=== PATIENT | female | born 1990 | race Hispanic/Latino ===

== ENCOUNTER 2019-04-03 04:21 | Inpatient (IN) | payer OTHER ==
[2019-04-02 09:09] LABS: Absolute Lymphocytes (CBC) 1.7 K/uL (0.7-4.9); Basophils % 0.2 % (0-1.3); Hematocrit 33.8 % (36.0-45.0); Lymphocytes % 20.7 % (15.3-44.8); MPV 9.6 fL (7.6-11.3); RBC Red Blood Cell Count 3.67 M/uL (3.86-4.86); Urine Appearance CLEAR; Urine Bilirubin NEGATIVE (NEG); Urine Blood NEGATIVE (NEG); Urine Color YELLOW; Urine Glucose NEGATIVE (NEG); Urine Protein NEGATIVE (NEG); Urine Urobilinogen 0.2 mg/dL (0.2-1.0)
[2019-04-02 09:12] LABS: Urine Microscopic Reflex NO UMIC
[2019-04-02 09:36] LABS: Protime INR 0.89
[~2019-04-03 04:21] MED LIST: CEFAZOLIN/SWI 2gm 2 GM/20 ML SYR IV SCH
[2019-04-03] MEDS ORDERED: Ringers Lactate 1,000 ML IV PRN (04:34)
[2019-04-03] MEDS ORDERED: NA CIT/CITRIC AC 30 ML ORAL UDC PO ONE (04:39)
[2019-04-03 04:55] VITALS: BMI 31.2
[2019-04-03] MEDS ORDERED: Ringers Lactate 1,000 ML IV SCH (05:00)
[2019-04-03] MEDS ORDERED: METOCLOPRAMIDE 10 MG/2mL INJ IV SCH (05:00)
[2019-04-03] MEDS ORDERED: CEFAZOLIN 2 GM in NA CHLORIDE 0.9% 100 ML IVPB SCH (06:00)
[2019-04-03] MEDS ORDERED: METHYLERGONOVINE 0.2MG/ML AMP IM ONE (06:18)
[2019-04-03] MEDS ORDERED: CEFAZOLIN/SWI 2gm 2 GM/20 ML SYR ONE (06:44)
[2019-04-03] MEDS ORDERED: CARBOPROST TROME 250 MCG/ML IM ONE (06:58)
[2019-04-03] MEDS ORDERED: LIDOCAINE 2% MPF 5 ML VIAL ONE (07:04)
[2019-04-03] MEDS ORDERED: MORPHINE SULFATE/PF 1 MG/ML (10 ML AMP) ONE (07:04)
[2019-04-03] MEDS ORDERED: EPHEDRINE SULF 50 MG/ML VIAL ONE (07:04)
[2019-04-03] MEDS ORDERED: OXYTOCIN 10 UNIT/ML ML IV ONE (07:05)
[2019-04-03] MEDS ORDERED: BUPIVACAINE 0.75% (PF) 2 ML SP ONE (07:07)
[2019-04-03] MEDS ORDERED: NS 0.9% VIAL 10 ML ONE (07:07)
[2019-04-03] MEDS ORDERED: ONDANSETRON 4 MG/2 ML VIAL ONE (07:09)
--- NOTE | 2019-04-03 08:29 | PREOPHP ---
Date of Admission: 04/03/2019 History Of Present Illness: 29-year-old female, 3, para 1, previous , for a repeat . Infection; blood loss; anesthetic complications; injury to bladder, bowel, ureter; postop erative complications; clots in legs; and pneumonia discussed. Patient knows fully well this does no t constitute all the possible problems that could occur during or following the surgery. She had an ultrasound in [place] that indicated possibly a very small percentage of accreta; however, on foll [facility] ultrasound in [place] with Dr. Garcia, high-computer network support specialist, he thinks the possibility for an ac creta is very low and he thinks that we can deliver here. Patient has been counseled and has chosen to deliver here. Has been given the opportunity to delivery in [place] if she so chooses, but declin ed. Family History: Maternal grandfather with diabetes. Uncle with autism. Allergies: NO ALLERGIES. Social History: No smoking. Medications: No medications other than vitamins prior to admission. Physical Examination: HEENT: Clear. Pupils equal, round, and reactive to light and accommodation. Conjunctivae well perf used. No oral, lingual, or buccal lesions. Chest and Lungs: Clear. Heart: Without murmurs, thrills, heaves, or rubs. Breasts: Without masses on previous visits. Abdomen: Term size. We have a male . It is probably at least 8 pounds or more. Extremities: Appear clear without edema, cyanosis, or clubbing. Pelvic: Cervix is fingertip. We will proceed with repeat section Saturday morning. Patient knows that [facility] and that Dr. Ty will be taking over. AMY/SREE Voice ID: [id number]
[2019-04-03] MEDS ORDERED: KETOROLAC 30 MG/ML INJ IM PRN (08:30)
[2019-04-03] MEDS ORDERED: CEFAZOLIN/SWI 1gm 1 GM/10 ML SYR IV SCH (08:30)
[2019-04-03] MEDS ORDERED: IBUPROFEN 200 MG TAB PO PRN (08:30)
[2019-04-03] MEDS ORDERED: BISACODYL 10 MG RECTAL SUPP RECT PRN (08:30)
[2019-04-03] MEDS ORDERED: ONDANSETRON 4 MG (ODT) TAB PO PRN (08:30)
[2019-04-03] MEDS ORDERED: ONDANSETRON 4 MG/2 ML VIAL IV PRN (08:30)
[2019-04-03] MEDS ORDERED: DIPHENHYDRAMINE 25 MG TAB/CAP PO PRN (08:30)
[2019-04-03] MEDS ORDERED: ACETAMINOPHEN 500 MG TAB PO PRN ×2 (08:30)
[2019-04-03] MEDS ORDERED: PROMETHAZINE 25 MG/ML VIAL ONE (08:31)
[2019-04-03] MEDS ORDERED: FAMOTIDINE 20 MG/2 ML VIAL IV SCH (09:00)
[2019-04-03] MEDS ORDERED: D5LR 1,000 ML with OXYTOCIN 20 UNIT IV SCH ×2 (09:00)
[2019-04-03] MEDS ORDERED: OXYTOCIN/LR 20 UNIT/1,000 ML BAG IV SCH (09:00)
[2019-04-03] MEDS ORDERED: Ringers Lactate 1,000 ML IV ONE ×2 (14:54→15:00)
[2019-04-03] MEDS ORDERED: CEFAZOLIN/SWI 2gm 2 GM/20 ML SYR IV SCH (16:00)
[2019-04-03] MEDS: KETOROLAC 30 MG/ML INJ IV PRN (16:23)
[2019-04-04] MEDS: KETOROLAC 30 MG/ML INJ IV PRN (05:45)
--- NOTE | 2019-04-04 07:48 | P.PN ---
Date of Service: 04/04/19 S-No complaints O-Afeb, vs stable, po hct 31, bandage dry, abdomen not distended A-Satisfactory P-D/C [place], IV, regular diet, ambulate.
[2019-04-04] MEDS ORDERED: MAGNESIUM HYDROXIDE 8% 30 ML PO PRN (08:30)
[2019-04-04] MEDS: Oxycodone HCl/Acetaminophen 1 TAB TAB PO PRN (14:45)
[2019-04-05] MEDS: Oxycodone HCl/Acetaminophen 1 TAB TAB PO PRN ×2 (00:21→06:00)
[2019-04-05 07:39] VITALS: BP 110/61; TEMP 98.4
--- NOTE | 2019-04-06 08:57 | OP ---
Surgeon: Daniel Richards MD 29-year-old female, 3, para 1, AB 1 at 39 weeks for repeat section. Infection, bloo d loss, anesthetic complications, injury to bladder, bowel, ureter, postoperative complications, clot s in legs, and pneumonia discussed. Patient knows fully well, this does not constitute all the possi ble problems that could occur during or following the surgery. She on 1 ultrasound was thought to po ssibly have a small amount of accreta. Consultation with high risk. [facility] gomez d no signs of accreta and at time of surgery no accreta was seen. After adequate spinal block anesth esia patient prepped and draped in the usual sterile manner, placed in dorsal supine position. Timeo ut was performed. Pfannenstiel incision was created over the previous incision site. The incision w as carried to the fascia. The fascia was incised and incision carried transversely bilaterally. Ant erior and posterior fascial planes were developed with both blunt and sharp dissection. The underlyi ng rectus muscle was . Peritoneum entered and low transverse bladder flap developed. At th is point, 7 pounds, 6 ounce male was delivered. Nuchal cord x1 loosely, Apgars 9 and 9. Cord blood specimen was obtained. Placenta was removed manually. Uterus cleared of clot and blood and e xteriorized. Cervical os dilated. As stated no signs of accreta. Estimated blood loss 800 cc or po ssibly less. Uterus closed with a running locked stitch of 1 chromic, followed by several figure-of- eight stitches, and running stitches along the right side of the incision for complete hemostasis. G utters cleared of clot and blood. Uterus was replaced in the peritoneal cavity. Inspection of sutur e line showed no further bleeding. The muscles were closed with 0 Vicryl 3 interrupted sutures. Fas ad was closed with 1 Vicryl running from either angle to the midline. Subcutaneous tissue was close d with 2-0 plain. Absorbable rox placed and then metal rox. Patient had been given 2 g of A ncef prior to the procedure. Tolerated all procedures well. Transferred back to her room in good co ndition. Final Diagnoses: Term intrauterine . Repeat section. Spinal block anesthesia. AMY/SREE Voice ID: [id number] Report ID: [id number]
== END 2019-04-05 10:05 | disposition home or self-care (01) | DRG 788 ==
LOC: 2ND-WC 04:21
PROVIDERS: ADMIT Specialist; ATTEND Specialist
PROC: 10D00Z1 Extraction of Products of Conception, Low, Open Approach (ICD-10-PCS; principal; 2019-04-03 07:30)
DX: O34.211 Maternal care for low transverse scar from previous cesarean delivery (principal); O69.81X0 Labor and delivery complicated by cord around neck, without compression, not applicable or unspecified; Z3A.39 39 weeks gestation of pregnancy; Z37.0 Single live birth
CPT/HCPCS: 36415; 81003; 85014; 85025; 85610; 85730; 86850; 86900; 86901; 88307; J0690; J2210; J2405; J2550; J2590; J2765; J7120

== ENCOUNTER 2020-12-01 05:07 | Inpatient (IN) | payer BC ==
[2020-11-30 15:42] LABS: Absolute Lymphocytes (CBC) 1.9 K/uL (0.7-4.9); Basophils % 0.4 % (0-1.3); Hematocrit 33.9 % (36.0-45.0); Lymphocytes % 21.8 % (15.3-44.8); MPV 9.9 fL (7.6-11.3); RBC Red Blood Cell Count 3.78 M/uL (3.86-4.86)
[2020-11-30 15:48] LABS: Protime INR 0.9
[2020-11-30 16:00] LABS: Urine Appearance CLEAR (Clear); Urine Bilirubin NEGATIVE (Negative); Urine Blood NEGATIVE (Negative); Urine Color YELLOW (Yellow); Urine Glucose NEGATIVE (Negative); Urine Microscopic Reflex NO UMIC; Urine Protein NEGATIVE (Negative); Urine Specific Gravity <=1.005 (1.005-1.030); Urine Urobilinogen 0.2 mg/dL (0.2-1.0)
[2020-11-30 23:13] LABS: RPR (Rapid Plasma Reagin) NON-REACT (NON-REACT)
[~2020-12-01 05:07] MED LIST changes: +CEFAZOLIN 2 GM in NA CHLORIDE 0.9% 100 ML IVPB SCH; -CEFAZOLIN/SWI 2gm 2 GM/20 ML SYR IV SCH; +CEFAZOLIN/SWI 2gm 2 GM/20 ML SYR IVP SCH; +Ringers Lactate 1,000 ML IV PRN; +Ringers Lactate 1,000 ML IV SCH
--- OUTSIDE RECORDS SUMMARY | 2020-12-01 05:12 | XMS REPORT | Continuity of Care Document ---
:1990 Author Organization [facility] t Address [address] [place] [address] [address] [place] [address] Care Team Providers Name Role Phone Radiology Attending Clinician Unavailable Doctor Unassigned, Name Attending Clinician Unavailable Problems This patient has no known problems. Allergies, Adverse Reactions, Alerts This patient has no known allergies or adverse reactions. Medications This patient has no known medications. Procedures This patient has no known procedures. Encounters Start End Encounter Admission Attending Care Care Encounter Source Date/Time Date/Time Type Type Clinicians Facility Department ID 2020-06-24 2020-06-24 [facility] Radiology [facility] [id number] 14:52:10 23:59:00 Encounter [place] [id number] [place] [id number] [place] [id number] 2020-06-24 2020-06-24 Orders Doctor SAQIB [id number] 00:00:00 00:00:00 Only Unassigned, [place] [id number] [place] [facility] [id number] Results This patient has no known results.
[2020-12-01] MEDS ORDERED: METOCLOPRAMIDE 10 MG/2mL INJ IV ONE (05:30)
[2020-12-01] MEDS ORDERED: FAMOTIDINE 20 MG/2 ML VIAL IV ONE (05:30)
[2020-12-01] MEDS ORDERED: NA CIT/CITRIC AC 30 ML ORAL UDC PO ONE (05:30)
[2020-12-01 06:28] VITALS: BMI 35.5
[2020-12-01 06:42] VITALS: O2SAT 100
[2020-12-01] MEDS ORDERED: EPHEDRINE SULF 50 MG/ML VIAL ONE (07:01)
[2020-12-01] MEDS ORDERED: Phenylephrine HCl 10 MG/ML 1 ML VIAL ONE (07:01)
[2020-12-01] MEDS ORDERED: NS 0.9% VIAL 0 ML ONE (07:01)
[2020-12-01] MEDS ORDERED: FENTANYL CITR 250 MCG/5 ML ONE (07:01)
[2020-12-01] MEDS ORDERED: LIDOCAINE 1% MPF 5 ML VIAL ONE (07:01)
[2020-12-01] MEDS ORDERED: OXYTOCIN 10 UNIT/ML ML IV ONE (07:01)
[2020-12-01] MEDS ORDERED: MORPHINE SULFATE/PF 1 MG/ML (10 ML AMP) ONE (07:01)
[2020-12-01] MEDS ORDERED: BUPIVACAINE 0.75% (PF) 2 ML SP ONE (07:02)
[2020-12-01] MEDS ORDERED: ONDANSETRON 4 MG/2 ML VIAL ONE (07:02)
[2020-12-01] MEDS ORDERED: CARBOPROST TROME 250 MCG/ML IM ONE (07:17)
[2020-12-01] MEDS ORDERED: METHYLERGONOVINE 0.2MG/ML AMP IM ONE (07:17)
[2020-12-01] MEDS ORDERED: CEFAZOLIN/SWI 2gm 2 GM/20 ML SYR ONE ×2 (07:27→15:49)
--- NOTE | 2020-12-01 07:54 | PREOPHP ---
Date of Admission: 12/01/2020 History Of Present Illness: This is a 30-year-old, 4, para 2, for repeat section. Infection; blood loss; anesthetic complications; injury to bladder, bowel, ureter; postoperative comp lications; clots in legs; pneumonia discussed. The patient knows fully well this does not constitute all the possible problems that could occur during or following surgery. Family History: Paternal grandfather with diabetes. She has an uncle, who is autistic. Past Surgical History: She has had 2 previous C-sections. Allergies: SHE HAS NO ALLERGIES. Social History: No smoking. Medications: vitamins prior to admission. Physical Examination: HEENT: Clear. Pupils equal, round, and reactive to light and accommodation. Conjunctivae well perf used. No oral, lingual, or buccal lesions. Lungs: Clear. Heart: Without murmurs, thrills, heaves, or rubs. Breasts: Without masses on previous visits. Abdomen: Term size baby. Estimated weight 8 pounds or more. Extremities: Clear without edema, cyanosis, or clubbing. Genitalia: The cervix is closed, maybe 1 cm. Baby is vertex, still -2 station or above. Assessment And Plan: We will proceed with repeat section tomorrow morning. Full preoperati ve talk. AMY/SREE Voice ID: [id number]
[2020-12-01] MEDS ORDERED: BISACODYL 10 MG RECTAL SUPP PR PRN (08:23)
[2020-12-01] MEDS ORDERED: Oxycodone HCl/Acetaminophen 1 TAB TAB PO PRN (08:23)
[2020-12-01] MEDS ORDERED: ONDANSETRON 4 MG/2 ML VIAL IV PRN (08:23)
[2020-12-01] MEDS ORDERED: KETOROLAC 30 MG/ML INJ IV PRN (08:23)
[2020-12-01] MEDS ORDERED: DIPHENHYDRAMINE 25 MG TAB/CAP PO PRN (08:23)
[2020-12-01] MEDS ORDERED: ONDANSETRON 4 MG (ODT) TAB PO PRN (08:23)
[2020-12-01] MEDS ORDERED: ACETAMINOPHEN 500 MG TAB PO PRN ×2 (08:23)
[2020-12-01] MEDS ORDERED: KETOROLAC 30 MG/ML INJ IM PRN (08:23)
[2020-12-01] MEDS ORDERED: D5LR 1,000 ML with OXYTOCIN 20 UNIT IV SCH ×2 (09:00)
[2020-12-01] MEDS ORDERED: OXYTOCIN/LR 20 UNIT/1,000 ML BAG IV SCH (09:00)
--- NOTE | 2020-12-01 11:03 | OP ---
Surgeon: Daniel Richards MD Nuclear Pharmacist: Dr. Cope for promotions assistant sales marketing surgeon. Anesthesiologist: Dr. Sanchez and . Indications: This is a 30-year-old female, for repeat section, third section, grav leni 4, para 2. Full preoperative counseling concerning procedure and possible complications includin g infection; blood loss; anesthetic complications; injury to bladder, bowel, ureter; postoperative co mplications; clots in legs; and pneumonia. The patient knows fully well this does not constitute all the possible problems that could occur during or following surgery. Anesthesia: Spinal block anesthesia. Procedure In Detail: After prepping and draping, time-out was performed. An incision was created ov er the previous incision sites, carried to the fascia. There were dense adhesions of the fascia. An terior and posterior fascial planes were developed with both blunt and sharp dissection. Underlying rectus muscle was . Peritoneal defect was encountered and entered. Low transverse uterine incision was created. A 7-pound 9-ounce female was delivered with vacuum extraction, Apgars 9 and 9. Cord blood specimen obtained. Placenta removed manually. Uterus cleared of clot and blood and exte riorized. Cervical os dilated with ring clamp. Uterus was closed with a running lock stitch of 1 ch romic followed by imbricating stitch from the midportion to the right angle. Estimated blood loss du ring the procedure 700 mL. Gutters clear of clot and blood. Uterus replaced in the peritoneal cavit y. Inspection of the suture line showed no further bleeding. Rectus muscles were approximated with 2 sutures of 0 Vicryl. The fascia was closed with 1 PDS running from either angle to the midline. A 2-0 plain was used to approximate the subcutaneous tissue. Ogema were used for the skin. 2 g of Ancef had been given prophylactically. The patient tolerated all procedures well, transferred back t o her room in good condition. Final Diagnoses: Repeat section, spinal block anesthesia. AMY/SREE Voice ID: [id number] Report ID: [id number]
[2020-12-01] MEDS: IBUPROFEN 200 MG TAB PO PRN (16:31)
[2020-12-02] MEDS: Oxycodone HCl/Acetaminophen 1 TAB TAB PO PRN ×4 (05:20→20:37)
--- NOTE | 2020-12-02 07:59 | DS ---
Hospital Course: Maryam Wong is a 30-year-old female, 4, para 2, for repeat sec tion, underwent repeat section with spinal block anesthesia. Delivery of a 7 pounds 9 ounce s female. Apgars 9 and 9. 700 cc blood loss. Rh positive. Immune to Rubella. Ancef given pre and postop. Postoperatively, she is afebrile. Output is good. We will discontinue Faust and IV. If t he patient is doing well, she can go home this afternoon. If she wishes to stay, we will dismiss her tomorrow morning. Prescription for tramadol given. She knows this goes through the breast milk. M ay elect to take Motrin instead. No complaints or problems this morning. Full postoperative talk gi perico. Final Diagnoses: Term intrauterine , repeat section, history of herpes, herpes jignesh e interval, spinal block anesthesia. AMY/SREE Voice ID: [id number] Report ID: [id number]
[2020-12-02] MEDS ORDERED: MAGNESIUM HYDROXIDE 8% 30 ML PO PRN (08:23)
[2020-12-02] MEDS: IBUPROFEN 200 MG TAB PO PRN (10:00)
[2020-12-02] MEDS ORDERED: IBUPROFEN 600 MG TAB PO PRN (17:00)
[2020-12-03] MEDS: Oxycodone HCl/Acetaminophen 1 TAB TAB PO PRN ×3 (00:37→09:10)
[2020-12-03 07:52] VITALS: BP 108/69; TEMP 97.6
--- NOTE | 2020-12-03 09:18 | DS ---
Hospital Course: Maryam Wong is a 30-year-old female, underwent repeat section at 39 we eks. Delivery of a 7 pounds 9 ounces female, Apgars 9 and 9. Spinal block anesthesia. 700 cc blood loss. Ancef given pre and postop for prophylaxis. Rubella immune. Strep negative. COVID negative . Postoperatively, she is afebrile, ambulating, voiding. Lochia is normal. She had some ear stuffi ness and unusual sensation with swallowing. Her ears are absolutely clear. She is ambulating, voidi ng. Her balance is good. Her vision is good. I think it is related to sinus problems. If it jamil nues, we will send her to Ear, Nose, and Throat specialist. She is dismissed with tramadol and I thi nk that the narcotic may be the cause of some of her occasional dizziness, although she said she has also had this associated with anxiety and after eating chocolate. Final Diagnoses: Term intrauterine at 39 weeks, repeat section, spinal block anes thesia. AMY/SREE Voice ID: [id number] Report ID: [id number]
[2020-12-04 18:23] LABS: HBsAG Nonreactive (Nonreactive)
== END 2020-12-03 09:50 | disposition home or self-care (01) | DRG 788 ==
LOC: 2ND-WC 05:07
PROVIDERS: ADMIT Specialist; ATTEND Specialist
PROC: 10D00Z1 Extraction of Products of Conception, Low, Open Approach (ICD-10-PCS; principal; 2020-12-01 07:30)
DX: O34.211 Maternal care for low transverse scar from previous cesarean delivery (principal); Z3A.39 39 weeks gestation of pregnancy; Z37.0 Single live birth; Z20.822 Contact with and (suspected) exposure to COVID-19
CPT/HCPCS: 36415; 81003; 85014; 85025; 85610; 85730; 86592; 86850; 86900; 86901; 87086; 87088; 87340; 88307; J0690; J2210; J2370; J2405; J2590; J2765; J3010; J7120; J7121; U0003